=== PATIENT | female | born 1995 | race African-American/Black ===

== ENCOUNTER 2019-08-14 22:26 | Inpatient (IN) ==
[2019-08-14] MEDS ORDERED: BUTORPHANOL 2 MG/ML VIAL IV PRN (23:35)
[2019-08-14] MEDS ORDERED: ONDANSETRON 4 MG/2 ML VIAL IV PRN (23:35)
[2019-08-14] MEDS ORDERED: MEPERIDINE 50 MG/1 ML VIAL IM PRN (23:35)
[2019-08-14] MEDS ORDERED: FAMOTIDINE 20 MG/2 ML VIAL IV PRN (23:44)
[2019-08-14] MEDS ORDERED: CITRIC ACID/SODIUM CITRATE 30 ML UDCUP PO PRN (23:44)
[2019-08-14] MEDS ORDERED: fentaNYL 2 MCG/ROPIV 0.2% EPID 100 ML EPIDURAL SCH (23:45)
[2019-08-14] MEDS ORDERED: PROMETHAZINE 25 MG/1 ML VIAL IM PRN (23:47)
[2019-08-14] MEDS ORDERED: ePHEDrine 50 MG/ML AMP IV PRN (23:47)
[2019-08-14] MEDS ORDERED: NALOXONE 0.4 MG/ML VIAL IV PRN (23:47)
[2019-08-14] MEDS ORDERED: diphenhydrAMINE 50 MG/1 ML VIAL IV PRN ×2 (23:47)
[2019-08-14] MEDS ORDERED: hydrOXYzine HCL 25 MG/1 ML VIAL IM PRN (23:47)
[2019-08-15 00:02] LABS: Basophils % 0.3 % (0.0-0.8); Eosinophils # 0.2 10*3/uL (0.0-0.87); Eosinophils % 1.6 % (0.00-10.9); Hematocrit 35.8 VOL% (35.7-47.0); Hemoglobin 11.3 GM/DL (12.0-16.0); Immature Granulocytes % 0.6 %; Immature Granulocytes Absolute 0.08 #; Lymphocytes # 1.7 10*3/uL (1.4-4.0); Lymphocytes % 13.1 % (21.3-54.2); Mean Corpuscular HGB Conc 31.6 GM/DL (32-36); Mean Corpuscular Volume 88.2 FL (87-102); Mean Platelet Volume 9.6 FL (9.6-12.0); Monocytes % 9.1 % (1.7-12.7); Neutrophils % 75.3 % (38.7-73.9); Platelet Count 244 T/CUMM (130-400); Red Blood Count 4.06 MC/CUMM (3.8-5.5); Red Cell Distribution Width 13.6 % (9.3-17.3); White Blood Count 12.6 T/CUMM (4-12)
[2019-08-15] MEDS: LACTATED RINGERS 1,000 ML IV SCH ×2 (00:10→01:37)
[2019-08-15 00:21] LABS: Albumin 3.1 G/DL (3.4-5.0); Bilirubin,Total 0.5 MG/DL (0.2-1.0); Calcium 9.3 MG/DL (8.5-10.1); Osmolality,Calculated 272.5 MOS/KG (273-304)
[2019-08-15 03:14] LABS: Apearance,Urine CLEAR (Clear); Bilirubin,Urine Negative (Negative); Blood, Urine Negative (Negative); Glucose,Urine (UA) Negative (Negative); Ketones,Urine 20 mg/dL (Negative); Nitrite,Urine Negative (Negative); Protein,Urine Negative; Squamous Epithelial Cell,Urine Occasional /HPF (0-10); Urine Color Colorless (Yellow); Urine Specific Gravity 1.003 (1.001-1.035); Urine Urobilinogen < 2.0 EU/DL (0.2-1.0)
[2019-08-15] MEDS ORDERED: OXYTOCIN/LR 20 UNIT/1,000 ML BAG IV SCH (06:00)
[2019-08-15] MEDS ORDERED: miSOPROStol 200 MCG TABLET ONE (09:25)
[2019-08-15] MEDS ORDERED: LIDOCAINE 1% 50 ML VIAL ONE (09:25)
[2019-08-15] MEDS ORDERED: METHYLERGONOVINE 0.2 MG/1 ML AMP ONE (09:26)
[2019-08-15 10:55] LABS: Cord Venous Blood HCO3 21.5 MMOL/L; Cord Venous Blood PCO2 49.8 MMHG; Cord Venous Blood PO2 20.3
[2019-08-15] MEDS ORDERED: oxyCODONE/ACETAMINOPHEN 5-325 MG TABLET PO PRN ×2 (13:26)
[2019-08-15] MEDS ORDERED: RHO(D) IMMUNE GLOBULIN 300 MCG SYRINGE IM ONE (13:26)
[2019-08-15] MEDS ORDERED: HYDROCORTISONE 2.5% RECTAL CREAM 30 GM TUBE TOP PRN (13:26)
[2019-08-15] MEDS ORDERED: DIPH/TET/ACEL PERT BOOSTER VACCINE 0.5 ML VIAL IM ONE (13:26)
[2019-08-15] MEDS ORDERED: BENZOCAINE 20%/MENTHOL 0.5% SPRAY 56 GM CAN TOP PRN (13:26)
[2019-08-15] MEDS ORDERED: MEASLES/MUMPS/RUBELLA VACCINE 0.5 ML VIAL SUBCUT ONE (13:26)
[2019-08-15] MEDS ORDERED: IBUPROFEN 800 MG TABLET PO PRN (13:26)
[2019-08-15] MEDS ORDERED: ACETAMINOPHEN 325 MG TABLET PO PRN (13:26)
[2019-08-15] MEDS ORDERED: BISACODYL 10 MG SUPP RECTAL PRN (13:26)
[2019-08-15] MEDS ORDERED: LANOLIN 50% CREAM 0.3 OZ TUBE TOP PRN (13:26)
[2019-08-15] MEDS ORDERED: WITCH HAZEL PADS 100/JAR TOP PRN (13:26)
[2019-08-15] MEDS: DOCUSATE SODIUM 100 MG CAPSULE PO SCH (21:29)
[2019-08-16 05:59] LABS: Basophils # 0.1 10*3/uL (0.0-0.2); Basophils % 0.3 % (0.0-0.8); Eosinophils # 0.2 10*3/uL (0.0-0.87); Eosinophils % 1.5 % (0.00-10.9); Hemoglobin 11.3 GM/DL (12.0-16.0); Immature Granulocytes % 0.6 %; Immature Granulocytes Absolute 0.09 #; Lymphocytes # 2.9 10*3/uL (1.4-4.0); Lymphocytes % 19.8 % (21.3-54.2); Mean Corpuscular HGB Conc 31.4 GM/DL (32-36); Mean Corpuscular Volume 87.8 FL (87-102); Monocytes % 9.6 % (1.7-12.7); Neutrophils % 68.2 % (38.7-73.9); Platelet Count 248 T/CUMM (130-400); White Blood Count 14.4 T/CUMM (4-12)
[2019-08-16] MEDS: DOCUSATE SODIUM 100 MG CAPSULE PO SCH ×2 (08:51→20:12)
[2019-08-17] MEDS: DOCUSATE SODIUM 100 MG CAPSULE PO SCH (08:37)
[2019-08-17 11:16] VITALS: BP 107/65
== END 2019-08-17 14:50 | disposition home or self-care (01) | DRG 560 ==
LOC: N.LDOUT 22:26 → N.LD 22:29 → N.OB 08-15 13:27
PROVIDERS: ADMIT Obstetrics & Gynecology; ATTEND Obstetrics & Gynecology